=== PATIENT | female | born 1965 | race Two or more races ===

== ENCOUNTER 2019-01-06 05:54 | Inpatient (IN) | payer BC ==
[2019-01-06 06:32] LABS: ADD MAN DIFF? NO
[2019-01-06 06:40] LABS: WHITE BLOOD COUNT 8.4 10^3/ul (4.8-10.8)
[2019-01-06 06:40] LABS: BASOPHILS % 0.5 % (0.0-2.0); EOSINOPHILS # 0.6 10^3/ul (0.0-0.5); EOSINOPHILS % 7.4 % (0.0-7.0); HEMATOCRIT 38.2 % (37.0-47.0); HEMOGLOBIN 12.6 g/dl (12.0-16.0); LYMPHOCYTES # 2.2 10^3/ul (0.8-2.9); LYMPHOCYTES % 26.7 % (15.0-51.0); MEAN CORPUSCULAR HEMOGLOBIN 28.1 pg (29.0-33.0); MEAN CORPUSCULAR VOLUME 85.3 fl (82.0-101.0); MEAN PLATELET VOLUME 9.9 fl (7.4-10.4); MONOCYTE # 0.7 10^3/ul (0.3-0.9); MONOCYTES % 7.9 % (0.0-11.0); NEUTROPHIL # 4.8 10^3/ul (1.6-7.5); NEUTROPHILS % 57.1 % (39.0-77.0); PLATELET COUNT 296 10^3/UL (140-415); RED BLOOD COUNT 4.48 10^6/ul (4.20-5.40); RED CELL DISTRIBUTION WIDTH 13.1 % (11.5-14.5)
[2019-01-06 06:58] LABS: INR 0.87; PROTIME 11.9 Sec (11.9-14.9); PT RATIO 0.9
[2019-01-06 06:59] LABS: PARTIAL THROMBOPLASTIN TIME 28.6 Sec (23.0-35.0)
[2019-01-06 07:04] LABS: ALANINE AMINOTRANSFERASE 26 IU/L (13-69); ALBUMIN 4.2 g/dl (3.3-4.9); ALKALINE PHOSPHATASE 108 IU/L (42-121); ANION GAP 10 (5-13); ASPARTATE AMINO TRANSFERASE 37 IU/L (15-46); BILIRUBIN,INDIRECT 0.4 mg/dl (0-1.1); BILIRUBIN,TOTAL 0.4 mg/dl (0.2-1.3); BLOOD UREA NITROGEN 14 mg/dl (7-20); CALCIUM 9.2 mg/dl (8.4-10.2); CARBON DIOXIDE 26 mmol/L (21-31); CHLORIDE 106 mmol/L (97-110); CREATININE 0.59 mg/dl (0.44-1.00); Estimated GFR > 60 mL/min (>60); GLUCOSE 100 mg/dl (70-220); POTASSIUM 3.9 mmol/L (3.5-5.1); SODIUM 142 mmol/L (135-144)
[2019-01-06] MEDS ORDERED: HYDROmorphONE 1 MG/5 ML IV SYRINGE IV (08:00)
[2019-01-06] MEDS ORDERED: PROPOFOL 20 ML (08:06)
[2019-01-06] MEDS ORDERED: MIDAZOLAM 1 MG/ML 2 ML INJ (08:08)
[2019-01-06] MEDS ORDERED: LIDOCAINE 1% (MDV) 20 ML INJ (08:08)
[2019-01-06] MEDS ORDERED: EPINEPHrine 0.1 MG/ML SYG (08:27)
[2019-01-06] MEDS ORDERED: ONDANSETRON 4 MG INJ ×2 (08:29→11:14)
[2019-01-06] MEDS ORDERED: CEFAZOLIN 1 GM INJ (08:29)
[2019-01-06] MEDS ORDERED: DEXAMETHASONE 4 MG/ML 5 ML INJ (08:42)
[2019-01-06] MEDS ORDERED: FAMOTIDINE 20 MG INJ (08:43)
[2019-01-06] MEDS: POLYMYXIN/BACITRACIN 1L IRRIG (09:21)
[2019-01-06] MEDS ORDERED: ROPIVACAINE 0.5 % 30 ML VIAL (10:18)
[2019-01-06] MEDS ORDERED: NEOMYC/POLYMYX/BACIT 30 GM OINT (10:23)
[2019-01-06] MEDS ORDERED: ROPIVACAINE 0.2% 20 ML VIAL (10:45)
[2019-01-06] MEDS: HYDROmorphONE 1 MG/5 ML IV SYRINGE IV (11:26)
[2019-01-06] MEDS: ONDANSETRON 4 MG INJ IV (11:26)
[2019-01-06] MEDS ORDERED: NACL 0.9% 3 ML SYG IV (12:00)
[2019-01-06] MEDS ORDERED: VANCOMYCIN IV PER PHARMACY XX (12:00)
[2019-01-06] MEDS ORDERED: ACETAMINOPHEN 325 MG TAB PO (12:00)
[2019-01-06] MEDS ORDERED: ONDANSETRON 4 MG INJ IV (12:00)
[2019-01-06] MEDS: GABAPENTIN 300 MG CAP PO ×2 (14:06→20:21)
[2019-01-06] MEDS: DOCUSATE SODIUM 100 MG CAP PO ×2 (14:07→20:20)
[2019-01-06] MEDS: VANCOMYCIN 1 GM 250 ML IVPB (14:16)
[2019-01-06] MEDS: morphine 4 MG/ML VIAL IV (19:45)
[2019-01-06] MEDS: CEFEPIME 1GM/50 ML (PMX) 50 ML IVPB (20:21)
[2019-01-07] MEDS: VANCOMYCIN 750 MG (PMX) 250 ML IVPB ×2 (01:31→13:25)
[2019-01-07 06:23] LABS: ADD MAN DIFF? NO
[2019-01-07 06:34] LABS: WHITE BLOOD COUNT 12.8 10^3/ul (4.8-10.8)
[2019-01-07 06:34] LABS: BASOPHILS % 0.2 % (0.0-2.0); EOSINOPHILS % 0.1 % (0.0-7.0); HEMATOCRIT 32.6 % (37.0-47.0); HEMOGLOBIN 10.6 g/dl (12.0-16.0); LYMPHOCYTES # 2.7 10^3/ul (0.8-2.9); LYMPHOCYTES % 21.3 % (15.0-51.0); MEAN CORPUSCULAR HEMOGLOBIN 28.3 pg (29.0-33.0); MEAN CORPUSCULAR HGB CONC 32.5 g/dl (32.0-37.0); MEAN CORPUSCULAR VOLUME 86.9 fl (82.0-101.0); MEAN PLATELET VOLUME 10.3 fl (7.4-10.4); MONOCYTE # 1.1 10^3/ul (0.3-0.9); MONOCYTES % 8.3 % (0.0-11.0); NEUTROPHIL # 8.9 10^3/ul (1.6-7.5); NEUTROPHILS % 69.7 % (39.0-77.0); PLATELET COUNT 254 10^3/UL (140-415); RED BLOOD COUNT 3.75 10^6/ul (4.20-5.40); RED CELL DISTRIBUTION WIDTH 13.5 % (11.5-14.5)
[2019-01-07 06:56] LABS: ALANINE AMINOTRANSFERASE 32 IU/L (13-69); ALBUMIN 3.4 g/dl (3.3-4.9); ALBUMIN/GLOBULIN RATIO 1.06; ALKALINE PHOSPHATASE 81 IU/L (42-121); ANION GAP 7 (5-13); ASPARTATE AMINO TRANSFERASE 28 IU/L (15-46); BILIRUBIN,INDIRECT 0.4 mg/dl (0-1.1); BILIRUBIN,TOTAL 0.4 mg/dl (0.2-1.3); BLOOD UREA NITROGEN 12 mg/dl (7-20); CALCIUM 8.4 mg/dl (8.4-10.2); CARBON DIOXIDE 25 mmol/L (21-31); CHLORIDE 108 mmol/L (97-110); CREATININE 0.49 mg/dl (0.44-1.00); Estimated GFR > 60 mL/min (>60); GLUCOSE 102 mg/dl (70-220); MAGNESIUM 2.4 mg/dl (1.7-2.5); POTASSIUM 4.3 mmol/L (3.5-5.1); SODIUM 140 mmol/L (135-144); TOTAL PROTEIN 6.6 g/dl (6.1-8.1)
[2019-01-07 07:48] LABS: HEMOGLOBIN A1C 5.2 % (0-5.9)
[2019-01-07] MEDS: DOCUSATE SODIUM 100 MG CAP PO ×2 (08:59→21:38)
[2019-01-07] MEDS: GABAPENTIN 300 MG CAP PO ×3 (08:59→21:38)
[2019-01-07] MEDS: CEFEPIME 1GM/50 ML (PMX) 50 ML IVPB ×2 (09:00→21:38)
[2019-01-07] MEDS: ANASTROZOLE 1 MG TAB PO (09:20)
[2019-01-07] MEDS: OXYCODONE/ACETAMINOPHEN (5/325) TAB PO (13:32)
[2019-01-07] MEDS: morphine 4 MG/ML VIAL IV ×2 (15:35→20:00)
[2019-01-08] MEDS: morphine 4 MG/ML VIAL IV ×2 (01:27→20:41)
[2019-01-08 01:53] LABS: VANCOMYCIN,TROUGH 7.2 ug/ml (10.0-20.0)
[2019-01-08] MEDS: VANCOMYCIN 750 MG (PMX) 250 ML IVPB ×2 (02:17→11:45)
[2019-01-08 05:15] LABS: ADD MAN DIFF? NO
[2019-01-08 05:26] LABS: BASOPHIL # 0.1 10^3/ul (0.0-0.1); BASOPHILS % 0.4 % (0.0-2.0); EOSINOPHILS # 0.1 10^3/ul (0.0-0.5); EOSINOPHILS % 0.4 % (0.0-7.0); HEMATOCRIT 33.1 % (37.0-47.0); HEMOGLOBIN 10.8 g/dl (12.0-16.0); LYMPHOCYTES # 4.2 10^3/ul (0.8-2.9); MEAN CORPUSCULAR HEMOGLOBIN 28.4 pg (29.0-33.0); MEAN CORPUSCULAR HGB CONC 32.6 g/dl (32.0-37.0); MEAN CORPUSCULAR VOLUME 87.1 fl (82.0-101.0); MEAN PLATELET VOLUME 10.1 fl (7.4-10.4); MONOCYTE # 0.9 10^3/ul (0.3-0.9); MONOCYTES % 7.4 % (0.0-11.0); NEUTROPHIL # 6.8 10^3/ul (1.6-7.5); NEUTROPHILS % 56.4 % (39.0-77.0); PLATELET COUNT 264 10^3/UL (140-415); RED CELL DISTRIBUTION WIDTH 13.8 % (11.5-14.5)
[2019-01-08 05:26] LABS: WHITE BLOOD COUNT 12.1 10^3/ul (4.8-10.8)
[2019-01-08 06:00] LABS: ANION GAP 8 (5-13); BLOOD UREA NITROGEN 13 mg/dl (7-20); CALCIUM 8.1 mg/dl (8.4-10.2); CARBON DIOXIDE 24 mmol/L (21-31); CHLORIDE 108 mmol/L (97-110); CREATININE 0.52 mg/dl (0.44-1.00); Estimated GFR > 60 mL/min (>60); GLUCOSE 100 mg/dl (70-220); MAGNESIUM 2.4 mg/dl (1.7-2.5); PHOSPHORUS 2.4 mg/dl (2.5-4.9); POTASSIUM 3.9 mmol/L (3.5-5.1); SODIUM 140 mmol/L (135-144)
[2019-01-08] MEDS: CEFEPIME 1GM/50 ML (PMX) 50 ML IVPB (09:30)
[2019-01-08] MEDS: DOCUSATE SODIUM 100 MG CAP PO ×2 (09:41→20:41)
[2019-01-08] MEDS: GABAPENTIN 300 MG CAP PO ×3 (09:41→20:41)
[2019-01-08] MEDS: ANASTROZOLE 1 MG TAB PO (09:43)
[2019-01-08] MEDS: OXYCODONE/ACETAMINOPHEN (5/325) TAB PO ×2 (09:44→15:08)
[2019-01-08] MEDS: CEFTRIAXONE 1 GM/50 ML (PMX) 50 ML IVPB (13:33)
[2019-01-09 05:28] LABS: ADD MAN DIFF? NO
[2019-01-09 05:34] LABS: BASOPHILS % 0.3 % (0.0-2.0); EOSINOPHILS # 0.2 10^3/ul (0.0-0.5); EOSINOPHILS % 2.2 % (0.0-7.0); HEMATOCRIT 33.9 % (37.0-47.0); HEMOGLOBIN 10.8 g/dl (12.0-16.0); LYMPHOCYTES # 2.5 10^3/ul (0.8-2.9); LYMPHOCYTES % 25.2 % (15.0-51.0); MEAN CORPUSCULAR HEMOGLOBIN 27.8 pg (29.0-33.0); MEAN CORPUSCULAR HGB CONC 31.9 g/dl (32.0-37.0); MEAN CORPUSCULAR VOLUME 87.4 fl (82.0-101.0); MEAN PLATELET VOLUME 10.1 fl (7.4-10.4); MONOCYTE # 0.8 10^3/ul (0.3-0.9); MONOCYTES % 8.5 % (0.0-11.0); NEUTROPHIL # 6.2 10^3/ul (1.6-7.5); NEUTROPHILS % 63.4 % (39.0-77.0); PLATELET COUNT 250 10^3/UL (140-415); RED BLOOD COUNT 3.88 10^6/ul (4.20-5.40); RED CELL DISTRIBUTION WIDTH 13.3 % (11.5-14.5)
[2019-01-09 05:34] LABS: WHITE BLOOD COUNT 9.8 10^3/ul (4.8-10.8)
[2019-01-09] MEDS: OXYCODONE/ACETAMINOPHEN (5/325) TAB PO ×2 (06:48→12:49)
[2019-01-09] MEDS: GABAPENTIN 300 MG CAP PO ×3 (09:19→22:03)
[2019-01-09] MEDS: DOCUSATE SODIUM 100 MG CAP PO ×2 (09:19→22:03)
[2019-01-09] MEDS: ANASTROZOLE 1 MG TAB PO (09:21)
[2019-01-09] MEDS: CEFTRIAXONE 1 GM/50 ML (PMX) 50 ML IVPB (14:12)
[2019-01-09] MEDS: morphine 4 MG/ML VIAL IV (19:30)
[2019-01-10] MEDS: OXYCODONE/ACETAMINOPHEN (5/325) TAB PO ×3 (05:20→18:07)
[2019-01-10] MEDS: DOCUSATE SODIUM 100 MG CAP PO (09:02)
[2019-01-10] MEDS: GABAPENTIN 300 MG CAP PO ×2 (09:02→12:34)
[2019-01-10] MEDS: ANASTROZOLE 1 MG TAB PO (09:03)
[2019-01-10] MEDS ORDERED: BISACODYL (EC) 5 MG TAB PO (11:00)
[2019-01-10] MEDS ORDERED: POLYETHYLENE GLYCOL 17 GM PACKET PO (11:00)
[2019-01-10] MEDS: CEFTRIAXONE 1 GM/50 ML (PMX) 50 ML IVPB (14:19)
== END 2019-01-10 18:20 | disposition home or self-care (01) | DRG 505 ==
LOC: SDS 05:54 → MS1 01-07 18:18 → 2NE 12:25 → MS1 01-09 09:44 → SDS 11:34 → REC 11:34 → 2NE 13:44
PROC: 0L8N0ZZ Division of Right Lower Leg Tendon, Open Approach (ICD-10-PCS; principal; 2019-01-06 07:30)
PROC: 2W3QXYZ Immobilization of Right Lower Leg using Other Device (ICD-10-PCS; 2019-01-06 07:30)
DX: Q66.0 Congenital talipes equinovarus (principal); M67.01 Short Achilles tendon (acquired), right ankle; Z85.3 Personal history of malignant neoplasm of breast; D72.829 Elevated white blood cell count, unspecified; E11.9 Type 2 diabetes mellitus without complications; G62.9 Polyneuropathy, unspecified; Z90.13 Acquired absence of bilateral breasts and nipples
CPT/HCPCS: 73590; 73610-RT; 73630; 80048; 80053; 80202; 83036; 83735; 84100; 85025; 85610; 85730; 87040; 97110; 97116; 97162; 97530

== ENCOUNTER 2019-03-09 12:16 | Day surgery (SDC) | payer BC ==
[2019-03-09] MEDS ORDERED: CEFAZOLIN 2 GM/50 ML (PMX) 50 ML IVPB (13:00)
[2019-03-09] MEDS ORDERED: LACTATED RINGER'S 1,000 ML IV (13:30)
[2019-03-09] MEDS ORDERED: MIDAZOLAM 1 MG/ML 2 ML INJ (14:44)
[2019-03-09] MEDS ORDERED: LIDOCAINE 1% (MDV) 20 ML INJ (14:47)
[2019-03-09] MEDS ORDERED: ROCURONIUM 50 MG INJ ×2 (14:47→16:30)
[2019-03-09] MEDS ORDERED: PROPOFOL 20 ML (14:47)
[2019-03-09] MEDS ORDERED: CEFAZOLIN 1 GM INJ (14:50)
[2019-03-09] MEDS ORDERED: ROPIVACAINE 0.5 % 30 ML VIAL (14:51)
[2019-03-09] MEDS: POLYMYXIN/BACITRACIN 1L IRRIG (15:37)
[2019-03-09] MEDS ORDERED: ONDANSETRON 4 MG INJ ×2 (16:35→17:01)
[2019-03-09] MEDS ORDERED: METOCLOPRAMIDE 10 MG INJ (16:35)
[2019-03-09] MEDS ORDERED: GLYCOPYRROLATE 0.4 MG INJ (16:35)
[2019-03-09] MEDS ORDERED: NEOSTIGMINE 3 MG/3 ML SYRINGE (16:35)
[2019-03-09] MEDS: ONDANSETRON 4 MG INJ IV (17:26)
[2019-03-09] MEDS ORDERED: MEPERIDINE 25 MG INJ IV (17:30)
[2019-03-09] MEDS ORDERED: OXYCODONE/ACETAMINOPHEN (5/325) TAB PO ×2 (17:30)
[2019-03-09] MEDS ORDERED: FENTAnyl 50 MCG/ML VIAL IV ×3 (17:30)
[2019-03-09] MEDS ORDERED: hydrALAzine 20 MG INJ IV (17:30)
[2019-03-09] MEDS ORDERED: MIDAZOLAM 1 MG/ML 2 ML INJ IV (17:30)
[2019-03-09] MEDS ORDERED: LABETALOL HCL 20MG INJ IV (17:30)
[2019-03-09] MEDS ORDERED: METOCLOPRAMIDE 10 MG INJ IV (17:30)
[2019-03-09] MEDS ORDERED: HYDROmorphONE 1 MG/5 ML IV SYRINGE IV ×3 (17:30)
[2019-03-09] MEDS ORDERED: DIPHENHYDRAMINE 50 MG INJ IV (17:30)
[2019-03-09] MEDS ORDERED: EPHEDrine 25 MG/5 ML SYG IV (17:30)
== END 2019-03-09 18:40 | disposition home or self-care (01) ==
LOC: SDS 12:16
DX: S92.001P Unspecified fracture of right calcaneus, subsequent encounter for fracture with malunion (principal); V09.9XXD Pedestrian injured in unspecified transport accident, subsequent encounter; M21.171 Varus deformity, not elsewhere classified, right ankle
CPT/HCPCS: 20694; 73630; 84703